=== PATIENT | male | born 1945 | race African-American/Black ===

== ENCOUNTER 2016-12-28 22:16 | Inpatient (IN) | payer MEDICARE, MEDICAID ==
[~2016-12-28] VITALS: Ht 188 cm; Wt 86.3 kg
[2016-12-28] MEDS ORDERED: OMEP20CA10 PO (22:30)
[2016-12-28] MEDS ORDERED: NAPR500T PO (22:30)
[2016-12-28] MEDS ORDERED: DOCU-150 PO (22:30)
[2016-12-28] MEDS ORDERED: ACETAMINOPHEN 325MG TABLET PO STA (22:53)
[2016-12-28 23:40] LABS: HEMATOCRIT. 38.5 % (42.0-52.0); HEMOGLOBIN. 13.1 g/dL (14.0-18.0); MEAN CORPUSCULAR HEMOGLOBIN 31.5 pg (28.0-32.0); MEAN CORPUSCULAR VOLUME 92.9 fL (80.0-94.0); MEAN PLATELET VOLUME 9.2 fl (7.4-10.4); PLATELET 223 x1000/uL (130-400); RED BLOOD CELL COUNT 4.15 mill/uL (4.7-6.1); RED CELL DISTRIBUTION WIDTH 12.4 % (11.6-14.6)
[2016-12-28 23:41] LABS: INR 1.1; PROTHROMBIN TIME 11.2 sec (9.4-11.6)
[2016-12-28] MEDS ORDERED: MORPHINE SULFATE 4 MG/ML CPJ (NOT FOR IM USE) IV ONE (23:45)
[2016-12-28 23:49] LABS: CARBON DIOXIDE 29 mEq/L (21-32); CHLORIDE 99 mEq/L (98-107)
[2016-12-29 00:15] LABS: PLATELET ESTIMATE NORMAL
[2016-12-29 00:45] LABS: CLARITY URINE CLEAR (CLEAR); COLOR URINE YELLOW (YELLOW); GLUCOSE URINE NEGATIVE (NEGATIVE); KETONES URINE NEGATIVE (NEGATIVE); LEUKOCYTE ESTERASE URINE NEGATIVE (NEGATIVE); NITRITE URINE NEGATIVE (NEGATIVE); OCCULT BLOOD URINE NEGATIVE (NEGATIVE); PROTEIN URINE NEGATIVE (NEGATIVE); SPECIFIC GRAVITY URINE 1.005 (1.005-1.030)
[2016-12-29] MEDS ORDERED: LORAZEPAM 2MG/ML CPJ IV ONE (00:45)
[2016-12-29] MEDS ORDERED: MORPHINE SULFATE 4 MG/ML CPJ (NOT FOR IM USE) IV ONE (00:45)
[2016-12-29] MEDS ORDERED: SODIUM CHLORIDE 0.9% 1,000 ML IV SCH (04:19)
[2016-12-29] MEDS ORDERED: ONDANSETRON HCL 4MG/2ML VIAL IV PRN (07:45)
[2016-12-29] MEDS ORDERED: CLONIDINE 0.1MG TABLET PO PRN (07:45)
[2016-12-29] MEDS ORDERED: LORAZEPAM 1MG TABLET PO PRN (07:45)
[2016-12-29 08:30] VITALS: BP_SYST 133; BP_SYST 139; BP_DIAS 88
[2016-12-29] MEDS: OMEPRAZOLE 20MG CAPSULE EXTENDED RELEASE PO SCH (09:37)
[2016-12-29] MEDS: DOCUSATE SODIUM 100MG CAPSULE PO SCH (09:38)
[2016-12-29] MEDS: NAPROXEN 500MG TABLET PO SCH ×2 (09:38→18:01)
[2016-12-29 12:14] VITALS: BP 137/86
[2016-12-29 15:26] LABS: CREATINE KINASE 141 IU/L (39-308); TROPONIN I < 0.02 ng/mL (0.00-0.04)
[2016-12-29 16:00] VITALS: BP 132/81
[2016-12-29] MEDS: HYDROCODONE/ACETAMINOPHEN 5/325MG TABLET PO PRN ×2 (16:26→20:33)
[2016-12-29 19:01] LABS: *AMPHETAMINES SCREEN URINE NEGATIVE (NEGATIVE); *BARBITURATES SCREEN URINE NEGATIVE (NEGATIVE); *BENZODIAZEPINES SCREEN URINE NEGATIVE (NEGATIVE); *COCAINE SCREEN URINE NEGATIVE (NEGATIVE); CANNABINOID URINE SCREEN NEGATIVE (NEGATIVE); METHADONE URINE SCREEN NEGATIVE (NEGATIVE); OPIATES URINE SCREEN PRESUMTIVE POSITIVE (NEGATIVE); PHENCYCLIDINE URINE SCREEN NEGATIVE (NEGATIVE)
[2016-12-29 20:00] VITALS: BP 104/64
[2016-12-29 23:04] LABS: CREATINE KINASE 113 IU/L (39-308); TROPONIN I < 0.02 ng/mL (0.00-0.04)
[2016-12-30] VITALS: BP 123/76
[2016-12-30] MEDS: HYDROCODONE/ACETAMINOPHEN 5/325MG TABLET PO PRN ×2 (00:34→05:14)
[2016-12-30 04:00] VITALS: BP 123/76
[2016-12-30] MEDS: OMEPRAZOLE 20MG CAPSULE EXTENDED RELEASE PO SCH (06:10)
[2016-12-30 07:15] LABS: HEMATOCRIT. 35.1 % (42.0-52.0); HEMOGLOBIN. 11.8 g/dL (14.0-18.0); MEAN CORPUSCULAR VOLUME 91.8 fL (80.0-94.0); MEAN PLATELET VOLUME 8.9 fl (7.4-10.4); PLATELET 225 x1000/uL (130-400); RED BLOOD CELL COUNT 3.82 mill/uL (4.7-6.1); RED CELL DISTRIBUTION WIDTH 12.8 % (11.6-14.6)
[2016-12-30 07:41] LABS: CARBON DIOXIDE 28 mEq/L (21-32); CHLORIDE 102 mEq/L (98-107); HDL CHOLESTEROL 34 mg/dL (40-59); LDL CHOLESTEROL 54 mg/dL (5-100)
[2016-12-30 08:00] VITALS: BP 135/81
[2016-12-30] MEDS: DOCUSATE SODIUM 100MG CAPSULE PO SCH (08:40)
[2016-12-30] MEDS: NAPROXEN 500MG TABLET PO SCH ×2 (08:40→17:32)
[2016-12-30 09:01] LABS: PLATELET ESTIMATE NORMAL
[2016-12-30] MEDS ORDERED: MORPHINE SULFATE 2 MG/ML CPJ (NOT FOR IM USE) IV PRN (10:45)
[2016-12-30] MEDS ORDERED: LORAZEPAM 2MG/ML CPJ IV NR (10:45)
[2016-12-30 12:00] VITALS: BP 133/89
[2016-12-30] MEDS: MORPHINE SULFATE 4 MG/ML CPJ (NOT FOR IM USE) IV PRN (12:04)
[2016-12-30 16:45] VITALS: BP 128/83
[2016-12-30 19:55] VITALS: BP 151/90
[2016-12-31 00:45] VITALS: BP 130/91
[2016-12-31] MEDS: MORPHINE SULFATE 4 MG/ML CPJ (NOT FOR IM USE) IV PRN ×3 (02:25→20:16)
[2016-12-31 04:45] VITALS: BP 139/83
[2016-12-31] MEDS: OMEPRAZOLE 20MG CAPSULE EXTENDED RELEASE PO SCH (05:50)
[2016-12-31] MEDS: HYDROCODONE/ACETAMINOPHEN 5/325MG TABLET PO PRN (05:50)
[2016-12-31 08:00] VITALS: BP 142/87
[2016-12-31] MEDS: DOCUSATE SODIUM 100MG CAPSULE PO SCH (08:03)
[2016-12-31] MEDS: NAPROXEN 500MG TABLET PO SCH ×2 (08:04→16:44)
[2016-12-31 10:21] LABS: HEMATOCRIT 35.4 % (42.0-52.0); HEMOGLOBIN 11.9 g/dL (14.0-18.0); MEAN CORPUSCULAR HEMOGLOBIN 30.8 pg (28.0-32.0); MEAN CORPUSCULAR VOLUME 91.6 fL (80.0-94.0); PLATELET 246 x1000/uL (130-400); RED BLOOD CELL COUNT 3.86 mill/uL (4.7-6.1); RED CELL DISTRIBUTION WIDTH 12.9 % (11.6-14.6)
[2016-12-31 10:43] LABS: CARBON DIOXIDE 29 mEq/L (21-32); CHLORIDE 104 mEq/L (98-107)
[2016-12-31 12:00] VITALS: BP 142/76
[2016-12-31 16:00] VITALS: BP 105/71
[2016-12-31 20:00] VITALS: BP 115/72
[2016-12-31] MEDS: ACETAMINOPHEN 325MG TABLET PO PRN (23:44)
[2017-01-01] VITALS: BP 109/49
[2017-01-01 04:00] VITALS: BP 129/72
[2017-01-01] MEDS: OMEPRAZOLE 20MG CAPSULE EXTENDED RELEASE PO SCH (06:23)
[2017-01-01] MEDS: NAPROXEN 500MG TABLET PO SCH ×2 (06:23→16:52)
[2017-01-01] MEDS: MORPHINE SULFATE 4 MG/ML CPJ (NOT FOR IM USE) IV PRN ×2 (06:49→16:53)
[2017-01-01] MEDS: ACETAMINOPHEN 325MG TABLET PO PRN ×2 (07:07→16:52)
[2017-01-01 07:30] VITALS: BP 139/87
[2017-01-01] MEDS: DOCUSATE SODIUM 100MG CAPSULE PO SCH (08:13)
[2017-01-01 11:40] VITALS: BP 152/85
[2017-01-01] MEDS: PIPERACILLIN/TAZ 3.375G PREMIX 50 ML IV SCH ×2 (12:59→20:23)
[2017-01-01] MEDS ORDERED: SODIUM CHLORIDE 0.9% 999 ML IV ONE (13:15)
[2017-01-01] MEDS ORDERED: SODIUM CHLORIDE 0.9% 1000ML BAG (SEPSIS BOLUS) IV ONE (13:15)
[2017-01-01] MEDS ORDERED: VANCOMYCIN 1250MG in DEXTROSE 5% WATER 250ML IV NR (13:30)
[2017-01-01] MEDS ORDERED: SODIUM CHLORIDE 0.9% 999 ML IV SCH (15:30)
[2017-01-01] MEDS ORDERED: SODIUM CHLORIDE 0.9% 1,000 ML IV SCH ×2 (15:30→15:45)
[2017-01-01 16:06] VITALS: BP 160/87
[2017-01-01 20:00] VITALS: BP 101/60
[2017-01-01] MEDS: VANCOMYCIN 1 G PREMIX 200 ML IV SCH (21:34)
[2017-01-02] VITALS: BP 112/73
[2017-01-02] MEDS ORDERED: VANCOMYCIN 1 G PREMIX 200 ML IV SCH (01:30)
[2017-01-02 04:00] VITALS: BP 116/77
[2017-01-02] MEDS: PIPERACILLIN/TAZ 3.375G PREMIX 50 ML IV SCH ×3 (04:28→20:25)
[2017-01-02] MEDS: MORPHINE SULFATE 4 MG/ML CPJ (NOT FOR IM USE) IV PRN ×4 (04:49→18:05)
[2017-01-02] MEDS: VANCOMYCIN 1 G PREMIX 200 ML IV SCH ×3 (05:49→21:41)
[2017-01-02 06:36] LABS: HEMATOCRIT 33.8 % (42.0-52.0); HEMOGLOBIN 11.4 g/dL (14.0-18.0); MEAN CORPUSCULAR HEMOGLOBIN 30.8 pg (28.0-32.0); MEAN CORPUSCULAR VOLUME 91.6 fL (80.0-94.0); PLATELET 251 x1000/uL (130-400); RED BLOOD CELL COUNT 3.69 mill/uL (4.7-6.1); RED CELL DISTRIBUTION WIDTH 13.2 % (11.6-14.6)
[2017-01-02 06:46] LABS: CARBON DIOXIDE 25 mEq/L (21-32); CHLORIDE 101 mEq/L (98-107)
[2017-01-02 07:52] VITALS: BP 110/67
[2017-01-02] MEDS: FAMOTIDINE 20MG TABLET PO SCH ×2 (08:52→18:04)
[2017-01-02] MEDS: DOCUSATE SODIUM 100MG CAPSULE PO SCH (08:52)
[2017-01-02] MEDS: NAPROXEN 500MG TABLET PO SCH ×2 (08:52→18:04)
[2017-01-02 11:48] VITALS: BP 130/81
[2017-01-02 15:53] VITALS: BP 130/68
[2017-01-02 20:00] VITALS: BP 103/66
[2017-01-02] MEDS: HYDROCODONE/ACETAMINOPHEN 5/325MG TABLET PO PRN (21:54)
[2017-01-03] VITALS: BP 110/71
[2017-01-03] MEDS: MORPHINE SULFATE 4 MG/ML CPJ (NOT FOR IM USE) IV PRN ×4 (00:19→21:08)
[2017-01-03 04:00] VITALS: BP 125/91
[2017-01-03 04:26] LABS: MEAN CORPUSCULAR HEMOGLOBIN 30.5 pg (28.0-32.0); MEAN CORPUSCULAR VOLUME 91.7 fL (80.0-94.0); MEAN PLATELET VOLUME 8.9 fl (7.4-10.4); PLATELET 253 x1000/uL (130-400); RED CELL DISTRIBUTION WIDTH 13.3 % (11.6-14.6)
[2017-01-03] MEDS: PIPERACILLIN/TAZ 3.375G PREMIX 50 ML IV SCH ×3 (04:28→21:07)
[2017-01-03 04:37] LABS: CARBON DIOXIDE 28 mEq/L (21-32); CHLORIDE 104 mEq/L (98-107)
[2017-01-03 05:05] LABS: VANCOMYCIN TROUGH 18.4 ug/mL (5.0-10.0)
[2017-01-03] MEDS: VANCOMYCIN 1 G PREMIX 200 ML IV SCH ×3 (05:32→21:47)
[2017-01-03 08:00] VITALS: BP 145/91
[2017-01-03] MEDS: NAPROXEN 500MG TABLET PO SCH ×2 (08:09→16:14)
[2017-01-03] MEDS: DOCUSATE SODIUM 100MG CAPSULE PO SCH (08:09)
[2017-01-03] MEDS: FAMOTIDINE 20MG TABLET PO SCH ×2 (08:09→16:14)
[2017-01-03] MEDS: ACETAMINOPHEN 325MG TABLET PO PRN (09:46)
[2017-01-03 12:00] VITALS: BP 126/81
[2017-01-03 12:11] LABS: INR 1.1; PARTIAL THROMBOPLASTIN TIME 27.5 sec (23.4-31.0); PROTHROMBIN TIME 11.2 sec (9.4-11.6)
[2017-01-03 16:00] VITALS: BP 123/87
[2017-01-03 16:06] LABS: NUCLEATED RED BLOOD CELLS 1 /100 WBC; PLATELET ESTIMATE NORMAL
[2017-01-03 20:00] VITALS: BP 114/71
[2017-01-04] VITALS: BP 123/81
[2017-01-04] MEDS: MORPHINE SULFATE 4 MG/ML CPJ (NOT FOR IM USE) IV PRN ×2 (03:31→08:52)
[2017-01-04 04:00] VITALS: BP 132/90
[2017-01-04] MEDS: PIPERACILLIN/TAZ 3.375G PREMIX 50 ML IV SCH ×3 (04:56→20:35)
[2017-01-04] MEDS: VANCOMYCIN 1 G PREMIX 200 ML IV SCH ×3 (06:13→21:35)
[2017-01-04 06:30] LABS: HEMATOCRIT 32.1 % (42.0-52.0); HEMOGLOBIN 10.7 g/dL (14.0-18.0); MEAN CORPUSCULAR HEMOGLOBIN 30.7 pg (28.0-32.0); MEAN CORPUSCULAR VOLUME 91.9 fL (80.0-94.0); PLATELET 253 x1000/uL (130-400); RED BLOOD CELL COUNT 3.49 mill/uL (4.7-6.1); RED CELL DISTRIBUTION WIDTH 13.6 % (11.6-14.6)
[2017-01-04 08:00] VITALS: BP 138/57
[2017-01-04 08:12] LABS: CARBON DIOXIDE 27 mEq/L (21-32); CHLORIDE 101 mEq/L (98-107)
[2017-01-04] MEDS: FAMOTIDINE 20MG TABLET PO SCH ×2 (08:52→17:25)
[2017-01-04] MEDS: DOCUSATE SODIUM 100MG CAPSULE PO SCH (08:52)
[2017-01-04] MEDS: NAPROXEN 500MG TABLET PO SCH ×2 (09:03→17:25)
[2017-01-04] MEDS ORDERED: BACITRACIN 50,000 UNITS/VIAL ONE (13:26)
[2017-01-04] MEDS ORDERED: NORMAL SALINE 0.9% 10 ML SYR ONE (13:26)
[2017-01-04] MEDS ORDERED: BACITRACIN ZINC 15GM TUBE TOP ONE (13:31)
[2017-01-04] MEDS ORDERED: LIDOCAINE HCL 1% 20ML VIAL (Pyxis) INJ ONE (14:09)
[2017-01-04] MEDS ORDERED: PROPOFOL 200MG/20ML VIAL IV ONE (14:09)
[2017-01-04] MEDS ORDERED: FENTANYL CITRATE/PF 50MCG/ML 2ML VIAL ONE (14:20)
[2017-01-04] MEDS ORDERED: HYDROMORPHONE HCL/PF 2MG/ML (OR) ONE (14:21)
[2017-01-04] MEDS ORDERED: LABETALOL HCL 20MG/4ML CARPUJECT IV PRN (14:45)
[2017-01-04] MEDS ORDERED: MEPERIDINE HCL/PF 25MG/ML CPJ IV PRN (14:45)
[2017-01-04] MEDS ORDERED: ONDANSETRON HCL 4MG/2ML VIAL IV PRN (14:45)
[2017-01-04] MEDS ORDERED: HYDROCODONE/ACETAMINOPHEN 5/325MG TABLET PO PRN (14:45)
[2017-01-04] MEDS ORDERED: HYDROMORPHONE HCL/PF 2MG/ML CPJ IV PRN (14:45)
[2017-01-04 16:00] VITALS: BP 118/78
[2017-01-04 20:00] VITALS: BP 103/67
[2017-01-04] MEDS: HYDROCODONE/ACETAMINOPHEN 10/325MG TABLET PO PRN (20:57)
[2017-01-05] VITALS: BP 130/80
[2017-01-05 04:00] VITALS: BP 128/77
[2017-01-05] MEDS: PIPERACILLIN/TAZ 3.375G PREMIX 50 ML IV SCH ×3 (04:59→21:09)
[2017-01-05] MEDS: VANCOMYCIN 1 G PREMIX 200 ML IV SCH (05:48)
[2017-01-05 07:13] LABS: CARBON DIOXIDE 27 mEq/L (21-32); VANCOMYCIN TROUGH 24.9 ug/mL (5.0-10.0)
[2017-01-05 07:31] LABS: CHLORIDE 108 mEq/L (98-107)
[2017-01-05 08:00] VITALS: BP 153/84
[2017-01-05] MEDS: FAMOTIDINE 20MG TABLET PO SCH ×2 (08:35→17:42)
[2017-01-05] MEDS: DOCUSATE SODIUM 100MG CAPSULE PO SCH (08:35)
[2017-01-05] MEDS: NAPROXEN 500MG TABLET PO SCH ×2 (08:35→17:42)
[2017-01-05 12:00] VITALS: BP 125/70
[2017-01-05] MEDS: HYDROCODONE/ACETAMINOPHEN 10/325MG TABLET PO PRN ×2 (13:25→17:58)
[2017-01-05] MEDS: VANCOMYCIN 750 MG PREMIX 150 ML IV SCH ×2 (14:43→23:33)
[2017-01-05 15:56] VITALS: BP 148/71
[2017-01-05 20:00] VITALS: BP 120/61
[2017-01-06 00:04] VITALS: BP 107/69
[2017-01-06] MEDS: HYDROCODONE/ACETAMINOPHEN 10/325MG TABLET PO PRN ×4 (00:09→22:14)
[2017-01-06 04:00] VITALS: BP 142/82
[2017-01-06] MEDS: PIPERACILLIN/TAZ 3.375G PREMIX 50 ML IV SCH ×3 (05:07→20:25)
[2017-01-06 07:06] LABS: HEMATOCRIT 29.3 % (42.0-52.0); HEMOGLOBIN 9.9 g/dL (14.0-18.0); MEAN CORPUSCULAR HEMOGLOBIN 31.1 pg (28.0-32.0); MEAN CORPUSCULAR VOLUME 91.9 fL (80.0-94.0); PLATELET 282 x1000/uL (130-400); RED BLOOD CELL COUNT 3.18 mill/uL (4.7-6.1)
[2017-01-06 08:00] VITALS: BP 144/81
[2017-01-06 08:38] LABS: CARBON DIOXIDE 28 mEq/L (21-32); CHLORIDE 104 mEq/L (98-107)
[2017-01-06] MEDS: VANCOMYCIN 750 MG PREMIX 150 ML IV SCH ×3 (09:06→22:16)
[2017-01-06] MEDS: NAPROXEN 500MG TABLET PO SCH ×2 (09:07→16:38)
[2017-01-06] MEDS: DOCUSATE SODIUM 100MG CAPSULE PO SCH (09:07)
[2017-01-06] MEDS: FAMOTIDINE 20MG TABLET PO SCH ×2 (09:07→16:38)
[2017-01-06 12:00] VITALS: BP 147/84
[2017-01-06 16:00] VITALS: BP 135/76
[2017-01-06 20:00] VITALS: BP 128/77
[2017-01-07] VITALS: BP 136/88
[2017-01-07 04:00] VITALS: BP 148/73
[2017-01-07] MEDS: PIPERACILLIN/TAZ 3.375G PREMIX 50 ML IV SCH ×2 (04:17→21:42)
[2017-01-07 05:53] LABS: HEMATOCRIT 27.7 % (42.0-52.0); HEMOGLOBIN 9.3 g/dL (14.0-18.0); MEAN CORPUSCULAR HEMOGLOBIN 30.8 pg (28.0-32.0); MEAN CORPUSCULAR VOLUME 91.2 fL (80.0-94.0); PLATELET 329 x1000/uL (130-400); RED BLOOD CELL COUNT 3.04 mill/uL (4.7-6.1)
[2017-01-07] MEDS: VANCOMYCIN 750 MG PREMIX 150 ML IV SCH ×2 (06:18→22:36)
[2017-01-07 06:44] LABS: CARBON DIOXIDE 27 mEq/L (21-32); CHLORIDE 104 mEq/L (98-107)
[2017-01-07] MEDS: NAPROXEN 500MG TABLET PO SCH (07:40)
[2017-01-07 08:00] VITALS: BP 124/61
[2017-01-07 12:00] VITALS: BP 144/74
[2017-01-07] MEDS: DOCUSATE SODIUM 100MG CAPSULE PO SCH (14:45)
[2017-01-07] MEDS: FAMOTIDINE 20MG TABLET PO SCH (14:45)
[2017-01-07] MEDS: HYDROCODONE/ACETAMINOPHEN 10/325MG TABLET PO PRN ×2 (14:45→23:54)
[2017-01-07 20:00] VITALS: BP 108/74
[2017-01-08] VITALS: BP 138/75
[2017-01-08 04:00] VITALS: BP 125/86
[2017-01-08] MEDS: PIPERACILLIN/TAZ 3.375G PREMIX 50 ML IV SCH ×2 (05:04→13:11)
[2017-01-08] MEDS: VANCOMYCIN 750 MG PREMIX 150 ML IV SCH (06:17)
[2017-01-08] MEDS: NAPROXEN 500MG TABLET PO SCH (07:40)
[2017-01-08] MEDS: FAMOTIDINE 20MG TABLET PO SCH (08:42)
[2017-01-08] MEDS: DOCUSATE SODIUM 100MG CAPSULE PO SCH (08:42)
[2017-01-08 11:42] LABS: HEMATOCRIT 30.5 % (42.0-52.0); HEMOGLOBIN 10.2 g/dL (14.0-18.0); MEAN CORPUSCULAR HEMOGLOBIN 30.8 pg (28.0-32.0); MEAN CORPUSCULAR VOLUME 91.7 fL (80.0-94.0); PLATELET 406 x1000/uL (130-400); RED BLOOD CELL COUNT 3.33 mill/uL (4.7-6.1); RED CELL DISTRIBUTION WIDTH 13.1 % (11.6-14.6)
[2017-01-08 12:00] VITALS: BP 141/81
[2017-01-08 12:04] LABS: CARBON DIOXIDE 28 mEq/L (21-32); CHLORIDE 104 mEq/L (98-107)
[2017-01-08] MEDS: HYDROCODONE/ACETAMINOPHEN 10/325MG TABLET PO PRN (13:11)
[2017-01-08 13:31] VITALS: BP 141/81
== END 2017-01-08 15:03 | DRG 710 ==
LOC: ER 22:17 → 8WST 12-29 04:19 → ENRESERV 12-29 06:51
PROVIDERS: ADMIT Internal Medicine; ATTEND Internal Medicine
PROC: 0K960ZZ Drainage of Left Shoulder Muscle, Open Approach (ICD-10-PCS; principal; 2017-01-04 12:30)
PROC: 05H533Z Insertion of Infusion Device into Right Subclavian Vein, Percutaneous Approach (ICD-10-PCS; 2017-01-08)
PROC: B5161ZA Fluoroscopy of Right Subclavian Vein using Low Osmolar Contrast, Guidance (ICD-10-PCS; 2017-01-08)
DX: A41.9 Sepsis, unspecified organism (principal); G93.41 Metabolic encephalopathy; E44.0 Moderate protein-calorie malnutrition; L02.414 Cutaneous abscess of left upper limb; S46.912A Strain of unspecified muscle, fascia and tendon at shoulder and upper arm level, left arm, initial encounter; D72.829 Elevated white blood cell count, unspecified; F17.210 Nicotine dependence, cigarettes, uncomplicated; S40.012A Contusion of left shoulder, initial encounter; G89.29 Other chronic pain; M75.100 Unspecified rotator cuff tear or rupture of unspecified shoulder, not specified as traumatic; T42.4X5A Adverse effect of benzodiazepines, initial encounter; Z60.2 Problems related to living alone; Z79.899 Other long term (current) drug therapy; K21.9 Gastro-esophageal reflux disease without esophagitis; W18.39XA Other fall on same level, initial encounter; Y93.89 Activity, other specified; Y92.098 Other place in other non-institutional residence as the place of occurrence of the external cause; Y99.8 Other external cause status; Z68.24 Body mass index [BMI] 24.0-24.9, adult
CPT/HCPCS: 36415; 36569; 71010; 72125; 72128; 73030; 73060; 73200; 73221; 76881; 76937; 77001; 80048; 80053; 80061; 80202; 80305; 81003; 82550; 82962; 83605; 84443; 84484; 85025; 85027; 85610; 85651; 85730; 87040; 87070; 87075; 87205; 87804; 93005; 93970; 96361; 96374; 96375; 97116; 97162; 97166; 97535; 99285; A4216; A4565; C1725; C1893; J1170; J2060; J2175; J2270; J2405; J2543; J2704; J3010; J3370; J3490; J7030; J7050; J7060